=== PATIENT | female | born 1995 | race Caucasian/White ===

== ENCOUNTER 2019-09-08 09:33 | Emergency (ER) | payer OTHER ==
[2019-09-08 09:57] VITALS: BP 112/70; PULSE 75; TEMP 97.8; BMI 22.4
[2019-09-08] MEDS ORDERED: SODIUM CHLORIDE 1,000 ML IV STA (10:49)
[2019-09-08] MEDS ORDERED: ACETAMINOPHEN 1000 MG/100 ML VIAL (NON FORMULARY) IVPB ONE (10:49)
[2019-09-08] MEDS ORDERED: ONDANSETRON 4 MG/2 ML VIAL IVPUSH ONE (10:52)
[2019-09-08] MEDS ORDERED: ONDANSETRON 4 MG/2 ML VIAL ONE (10:56)
[2019-09-08] MEDS ORDERED: ACETAMINOPHEN INJECTION 100 ML IVPB ONE (10:56)
--- NOTE | 2019-09-08 11:27 | PDOC ---
History of Present Illness <Cely Kenny - Last Filed: 09/08/19 12:43> - General History Source: Patient Exam Limitations: No Limitations - History of Present Illness Travel History: No Timing/Duration: reports: constant Quality: reports: mild (headache) Pain Radiation: reports: no radiation Aggravating Factors: improves with: None Alleviating Factors: improves with: None <Sravani Coulter - Last Filed: 09/08/19 13:08> - General Chief Complaint: Nausea/Vomiting Stated Complaint: DIZZY/HEADACHE Time Seen by Provider: 09/08/19 10:26 Past History <Cely Kenny - Last Filed: 09/08/19 12:43> - Travel Traveled outside of the country in the last 30 days: No Close contact w/someone who was outside of country & ill: No - Psycho Social/Smoking Cessation Hx Smoking History: Never smoked Have you smoked in the past 12 months: No Hx Alcohol Use: No Drug/Substance Use Hx: No Patient Lives Alone: No Lives with/in: spouse/SO <YfnSravani - Last Filed: 09/08/19 13:08> - Past Medical History Allergies/Adverse Reactions: Allergies Allergy/AdvReac Type Severity Reaction Status Date / Time No Known Allergies Allergy Verified 09/08/19 09:52 Home Medications: Ambulatory Orders Ondansetron HCl [Zofran] 4 mg PO TID PRN #12 tablet 09/08/19 Review of Systems - Review of Systems Able to Perform ROS?: Yes Constitutional: No: Symptoms Reported HEENTM: No: Symptoms Reported Respiratory: No: Symptoms reported Cardiac (ROS): No: Symptoms Reported ABD/GI: Yes: Nausea. No: Vomiting : Yes: Dysuria. No: Discharge, Frequency, Flank Pain Musculoskeletal: No: Symptoms Reported Integumentary: No: Symptoms Reported Neurological: Yes: Headache Endocrine: No: Symptoms Reported Hematologic/Lymphatic: No: Symptoms Reported <Sravani Coulter - Last Filed: 09/08/19 13:08> *Physical Exam - Vital Signs Last Vital Signs Temp Pulse Resp BP Pulse Ox 97.8 F 75 15 112/70 98 09/08/19 09:52 09/08/19 09:52 09/08/19 09:52 09/08/19 09:52 09/08/19 09:52 <Cely Kenny - Last Filed: 09/08/19 12:43> - Vital Signs Last Vital Signs Temp Pulse Resp BP Pulse Ox 97.8 F 75 15 112/70 98 09/08/19 09:52 09/08/19 09:52 09/08/19 09:52 09/08/19 09:52 09/08/19 09:52 - Physical Exam General Appearance: Yes: Nourished, Appropriately Dressed. No: Apparent Distress HEENT: positive: Pharynx Normal. negative: Pale Conjunctivae Neck: positive: Normal Thyroid Respiratory/Chest: positive: Lungs Clear, Normal Breath Sounds. negative: Respiratory Distress, Accessory Muscle Use Cardiovascular: positive: Regular Rhythm, Regular Rate. negative: Murmur Female Pelvic Exam: positive: normal external exam. negative: discharge, vaginal bleeding Gastrointestinal/Abdominal: positive: Soft. negative: Tenderness Integumentary: positive: Normal Color, Warm, Moist Neurologic: positive: Motor Strength 5/5 (ambulatory) <Sravani Coulter - Last Filed: 09/08/19 13:08> ED Treatment Course - LABORATORY CBC & Chemistry Diagram: 09/08/19 11:11 09/08/19 11:11 - ADDITIONAL ORDERS Additional order review: Laboratory Results 09/08/19 09/08/19 11:11 11:11 Sodium 136 Potassium 3.9 Chloride 104 Carbon Dioxide 25 Anion Gap 7 L BUN 6.5 L Creatinine 0.6 Est GFR (CKD-EPI)AfAm 148.90 Est GFR (CKD-EPI)NonAf 128.48 Random Glucose 73 L Calcium 8.9 Total Bilirubin 0.2 AST 21 ALT 25 Alkaline Phosphatase 87 Total Protein 7.4 Albumin 3.6 Urine Color Yellow Urine Appearance Clear Urine pH 7.5 Ur Specific [place] 1.015 Urine Protein Negative Urine Glucose (UA) Negative Urine Ketones Negative Urine Blood Negative Urine Nitrite Negative Urine Bilirubin Negative Urine Urobilinogen 1.0 Ur Leukocyte Esterase Negative 09/08/19 11:11 RBC 5.92 H MCV 66.7 L MCHC 31.3 L RDW 14.8 MPV 13.5 H Neutrophils % 75.1 Lymphocytes % 20.5 Monocytes % 3.3 L Eosinophils % 0.3 Basophils % 0.8 - Medications Given in the ED: ED Medications Discontinued Medications Generic Name Dose Route Start Last Admin Trade Name Freq PRN Reason Stop Dose Admin Acetaminophen 1,000 mg 09/08/19 10:49 09/08/19 10:55 Ofirmev Injection - IVPB 09/08/19 10:50 1,000 mg ONCE ONE Administration Sodium Chloride 1,000 mls @ 1,000 mls/hr 09/08/19 10:49 09/08/19 10:55 Normal Saline - IV 09/08/19 11:48 1,000 mls/hr ASDIR STA Administration Ondansetron HCl 4 mg 09/08/19 10:52 09/08/19 10:55 Zofran Injection IVPUSH 09/08/19 10:53 4 mg ONCE ONE Administration <Cely Kenny - Last Filed: 09/08/19 12:43> - LABORATORY CBC & Chemistry Diagram: 09/08/19 11:11 09/08/19 11:11 <Sravani Coulter - Last Filed: 09/08/19 13:08> Medical Decision Making - Medical Decision Making The patient was seen and evaluated in conjunction with midlevel provider under my direct supervision, ancillary studies were reviewed. I agree with the plan as outlined with ELAINE Coulter. HPI, workup/dispo as outlined. VS reviewed, wnl. currently ~2 months. no VB. indu PO intake. 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 patient currently 8 weeks no other complaints Exam: Patient with no abnormal findings on exam vital signs stable. Plan: Labs, urine, IV fluids, Zofran IV Tylenol 09/08/19 12:04 Laboratory Tests 09/08/19 09/08/19 09/08/19 11:11 11:11 11:11 WBC 9.1 Hgb 12.4 Hct 39.5 Plt Count 123 L MPV 13.5 H Monocytes % 3.3 L Sodium 136 Potassium 3.9 Chloride 104 Carbon Dioxide 25 Anion Gap 7 L BUN 6.5 L Creatinine 0.6 Est GFR (CKD-EPI)AfAm 148.90 Est GFR (CKD-EPI)NonAf 128.48 Random Glucose 73 L Calcium 8.9 Total Bilirubin 0.2 AST 21 ALT 25 Urine pH 7.5 Ur Specific [place] 1.015 Urine Protein Negative Urine Glucose (UA) Negative Urine Ketones Negative Urine Nitrite Negative Urine Bilirubin Negative Ur Leukocyte Esterase Negative C. trachomatis (LISA) N. gonorrhoeae (LISA) 09/08/19 11:11 WBC Hgb Hct Plt Count MPV Monocytes % Sodium Potassium Chloride Carbon Dioxide Anion Gap BUN Creatinine Est GFR (CKD-EPI)AfAm Est GFR (CKD-EPI)NonAf Random Glucose Calcium Total Bilirubin AST ALT Urine pH Ur Specific [place] Urine Protein Urine Glucose (UA) Urine Ketones Urine Nitrite Urine Bilirubin Ur Leukocyte Esterase C. trachomatis (LISA) Pending N. gonorrhoeae (LISA) Pending patient states feeling better. Patient given crackers and apple juice 09/08/19 13:06 Patient states feeling much better. Patient tolerated crackers apple juice and turkey sandwich. Will discharge home with Zofran. Patient is aware urine culture was sent and to start her vitamins. 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 examiner and adjuster <Sravani Coulter - Last Filed: 09/08/19 13:08> Discharge - Discharge Information Problems reviewed: Yes <Cely Kenny - Last Filed: 09/08/19 12:43> - Discharge Information Problems reviewed: Yes <Sravani Coulter - Last Filed: 09/08/19 13:08> - Discharge Information Clinical Impression/Diagnosis: Vomiting or nausea of Condition: Improved Disposition: HOME - Additional Discharge Information Prescriptions: Ondansetron HCl [Zofran] 4 mg PO TID PRN #12 tablet PRN Reason: Nausea And/Or Vomiting - Follow up/Referral Referrals: Kush Sanders MD [Staff Physician] - - Patient Discharge Instructions Patient Printed Discharge Instructions: Managing Symptoms of Additional Instructions: As far as the headache is concerned you may take Tylenol for headache. As far as the nausea you may take Zofran for nausea. Eat small frequent meals and please start your prenatals. Print Language: SAMI
[2019-09-08 11:38] LABS: BASO % 0.8 % (0-2.0); EOS % 0.3 % (0-4.5); HEMATOCRIT 39.5 % (32.4-45.2); HEMOGLOBIN 12.4 GM/dL (10.7-15.3); LYMPH % 20.5 % (8-40); MCH 20.9 pg (25.7-33.7); MCHC 31.3 g/dl (32.0-36.0); MEAN CELL VOLUME 66.7 fl (80-96); MEAN PLT VOLUME 13.5 fl (7.5-11.1); MONO % 3.3 % (3.8-10.2); NEUT % 75.1 % (42.8-82.8); PLATELET COUNT 123 K/MM3 (134-434); RBC 5.92 M/mm3 (3.60-5.2); RDW 14.8 % (11.6-15.6); WHITE BLOOD COUNT 9.1 K/mm3 (4.0-10.0)
[2019-09-08 11:46] LABS: PH,URINE 7.5 (5.0-8.0); URINE APPEARANCE CLEAR; URINE BILIRUBIN NEGATIVE (NEGATIVE); URINE COLOR YELLOW; URINE GLUCOSE (UA) NEGATIVE (NEGATIVE); URINE KETONE NEGATIVE (NEGATIVE); URINE LEUK ESTERASE NEGATIVE (NEGATIVE); URINE NITRITE NEGATIVE (NEGATIVE); URINE PROTEIN NEGATIVE (NEGATIVE)
[2019-09-08 12:01] LABS: ALBUMIN 3.6 g/dl (3.4-5.0); BILIRUBIN,TOTAL 0.2 mg/dL (0.2-1); BLOOD UREA NITROGEN 6.5 mg/dL (7-18); CALCIUM 8.9 mg/dL (8.5-10.1); CREATININE 0.6 mg/dL (0.55-1.3); POTASSIUM 3.9 mmol/L (3.5-5.1); TOT PROT 7.4 g/dl (6.4-8.2)
[2019-09-08 13:05] LABS: ANISOCYTOSIS 2+; MACROCYTOSIS 0; PLATELET ESTIMATE DECREASED
== END 2019-09-08 13:18 | disposition home or self-care (01) ==
LOC: JER 09:33
PROC: 3E033GC Introduction of Other Therapeutic Substance into Peripheral Vein, Percutaneous Approach (ICD-10-PCS; principal; 2019-09-08)
PROC: 3E033NZ Introduction of Analgesics, Hypnotics, Sedatives into Peripheral Vein, Percutaneous Approach (ICD-10-PCS; 2019-09-08)
DX: O26.891 Other specified pregnancy related conditions, first trimester (principal); O21.0 Mild hyperemesis gravidarum; Z3A.08 8 weeks gestation of pregnancy
CPT/HCPCS: 36415; 80053; 81003; 85025; 87086; 87491; 87591; 99282-25; J0131; J7030

== ENCOUNTER 2020-04-04 07:10 | Inpatient (IN) | payer OTHER ==
[2020-04-04] MEDS ORDERED: AMPICILLIN SODIUM 2 GM VIAL ONE (07:56)
--- NOTE | 2020-04-04 08:03 | PD.OB.PROG ---
Past Medical History - Primary Care Physician PCP:: Austin Conner Documenting Provider Type: Laborist - Admission Chief Complaint: in labor History of Present Illness: second baby. Uneventful gestation. GBS pos. 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 Cardio/Vascular: Denies/None Pulmonary: Denies/None Gastrointestinal: Denies/None Hepatobiliary: Denies/None Renal/: Denies/None Heme/Onc: Denies/None Infectious Disease: Denies/None Psych: Denies/None Musculoskeletal: Denies/None Rheumatology: Denies/None ENT: Denies/None Endocrine: Denies/None Dermatology: Denies/None - Smoking History Smoking history: Never smoked Have you smoked in the past 12 months: No - Alcohol/Substance Use Hx Alcohol Use: No Review of Systems - Review of Systems Constitutional: reports: No Symptoms Eyes: reports: No Symptoms HENT: reports: No Symptoms Neck: reports: No Symptoms Cardiovascular: reports: No Symptoms Respiratory: reports: No Symptoms Gastrointestinal: reports: No Symptoms Genitourinary: reports: No Symptoms Breasts: reports: No Symptoms Reported Musculoskeletal: reports: No Symptoms Integumentary: reports: No Symptoms Neurological: reports: No Symptoms Endocrine: reports: No Symptoms Hematology/Lymphatic: reports: No Symptoms Psychiatric: reports: No Symptoms Physical Exam - Obstetrical Constitutional: Yes: Well Nourished, No Distress, Calm Eyes: Yes: WNL, Conjunctiva Clear, EOM Intact HENT: Yes: WNL, Atraumatic, Normocephalic Neck: Yes: WNL, Supple, Trachea Midline Cardiovascular: Yes: WNL, Regular Rate and Rhythm Lungs: Clear to auscultation Breast(s): Yes: WNL - Abdominal Exam/OB Fundal Height: 38 Number of Fetuses: Single Presentation: Vertex Contractions: Yes Regularity: Regular Intensity: Moderate Monitor Mode: External Heart Rate (range): 140 Heart Rate Location: [facility] Category: I Accelerations: Uniform Decelerations: None - Vaginal Exam/OB Vaginal Exam Deferred: No Vaginal Bleeding: No Dilatation (cm): 9 Effacement (%): 100 Amniotic Membrane Status: Intact Presentation: Vertex/Position Station: 0 - Physical Exam Musculoskeletal: Yes: WNL Extremities: Yes: WNL Integumentary: Yes: WNL ...Motor Strength: WNL Psychiatric: Yes: WNL Problem List - Problems (1) Active labor at term Code(s): [id number] - Assessment/Plan Active, ready to deliver. Ampicillin for GBS prophylaxis. Expecting vaginal delivery soon.
[2020-04-04 08:28] VITALS: BMI 25.4
[2020-04-04] MEDS ORDERED: OXYTOCIN 20 UNITS in 0.9% NS 20 UNIT/1,000 ML INFUS.BAG IV ONE (08:48)
[2020-04-04] MEDS ORDERED: LIDOCAINE HCL 1% PRESERVATIVE FREE - 30ML VIAL ONE (08:49)
--- NOTE | 2020-04-04 09:21 | HP ---
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: No: Alzheimer's, CVA, Dementia, Migraine, Multiple Sclerosis, Peripheral Neuropathy, Parkinson's, Seizure, Syncope, TIA, Vertigo, Other Cardiovascular: No: AFIB, Aneurysm, Aortic Insufficiency, Aortic Stenosis, CAD, CHF, Deep Vein Thrombosis, HTN, Hyperlipdemia, [place], Mitral Insufficiency, Mitral Stenosis, Murmur, Pulmonary Hypertension, Other Pulmonary: No: Asthma, Bronchitis, Cancer, COPD, O2 Dependent, Pneumonia, Previously Intubated, Pulmonary Embolus, Pulmonary Fibrosis, Sleep Apnea, Other Gastrointestinal: No: Ascites, Cancer, Constipation, Crohn's Disease, Diverticulitis, Diverticulosis, Esophageal Varices, Gastritis, GERD, GI Bleed, Hemorrhoids, Hiatal Hernia, Inflamatory Bowel Disease, Irritable Bowel Disease, Pancreatitis, Peptic Ulcer Disease, Ulcerative Colitis, Other Hepatobiliary: No: Cirrhosis, Cholelithiasis, Cholecystitis, Choledocholithiasis, Hepatitis A, Hepatitis B, Hepatitis C, Other Renal/: No: Renal Failure, Renal Inusuff, BPH, Cancer, Hematuria, Hemodialysis, Neurogenic Bladder, Renal Calculi, UTI, Other Reproductive: No: Ectopic , Endometriosis, Fibroids, PID, Polycystic Ovary Syndrome, Postmenopausal, Other ...: 2 ...Para: 1 ...Term: 1 ...: 0 ...Spon : 0 ...Induced : 0 ...Living Children: 1 ...Multiple Gestation: 0 ...LMP: 07/10/19 ... Weeks Gestation by Dates: 38.4 ...EDC by Dates: 04/15/20 ...EDC by Sono: 04/09/20 Heme/Onc: No: Anemia, B12 Deficiency, Bleeding Disorder, Cancer, Current Chemotherapy, Current Radiation Therapy, Hemochromatosis, Hypercoaguable State, Myeloproliferative Synd, Sickle Cell Disease, Sickle Cell Trait, Thrombocytopenia, Other Infectious Disease: No: AIDS, C-Diff, Herpes Zoster, HIV, MRSA, STD's, Tuberculosis, VREF, Other Psych: No: Addictions, Anxiety, Bipolar, Depression, Panic, Psychosis, Schizophrenia, Other Musculoskeletal: No: Bursitis, Chronic low back pain, Hemiparesis, Hemiplegia, Osteoarthritis, Paraplegia, Other Rheumatology: No: Fibromyalgia, Gout, Lupus, Rheumatoid Arthritis, Sarcoidosis, Vasculitis, Other ENT: No: Allergic Rhinitis, Sinusitis, Other Endocrine: No: Jerauld's Disease, Oxford's Disease, Diabetes Insipidus, D iabetes Mellitus, Hyperparathyroidism, Hyperthyroidism, Hypothyroidism, Osteopenia, SIADH, Other - Past Surgical History Past Surgical History: No: None, AAA Repair, AICD, Amputation, Appendectomy, Arthrosocopy, AV Fistula/Graft, Bariatric Surgery, Breast Biopsy, Bypass, CABG, Carotid Endarterectomy, Cataract Removal, Cholecystectomy, Colectomy, Colonoscopy, Colostomy, Craniotomy, , Cystectomy, Hernia Repair, Hysterectomy, Ileal Conduit, Ileosotomy, Joint Replacement, Kidney Transplant, Laminectomy, Liver Transplant, Mastectomy, Nephrectomy, Oopherectomy, Orchiectomy, Permanent Pacemaker, Prostatectomy, Splenectomy, Stent, Thoracotomy, TURP, Tonsillectomy, Tubal Ligation, Upper Endoscopy, Valve Replacement, Vasectomy, Vein Stripping/Ligation Hx Myomectomy: No Hx Transabdominal Cerclage: No - Advance Directives Advance Directives: No: Living Will, Health Care Proxy, DNR, Organ Donor, Tissue Donor, MOLST - Smoking History Smoking history: Never smoked Have you smoked in the past 12 months: No - Alcohol/Substance Use Hx Alcohol Use: No Home Medications - Allergies Allergies/Adverse Reactions: Allergies Allergy/AdvReac Type Severity Reaction Status Date / Time No Known Allergies Allergy Verified 09/08/19 09:52 - Home Medications Home Medications: Ambulatory Orders Ondansetron HCl [Zofran] 4 mg PO TID PRN #12 tablet 09/08/19 Nitrofurantoin Monohyd/M-Cryst [Macrobid -] 100 mg PO BID #14 capsule 02/20/20 Review of Systems - Review of Systems Constitutional: reports: No Symptoms Eyes: reports: No Symptoms HENT: reports: No Symptoms Neck: reports: No Symptoms Cardiovascular: reports: No Symptoms Respiratory: reports: No Symptoms Gastrointestinal: reports: No Symptoms Genitourinary: reports: No Symptoms Breasts: reports: No Symptoms Reported Musculoskeletal: reports: No Symptoms Integumentary: reports: No Symptoms Neurological: reports: No Symptoms Endocrine: reports: No Symptoms Hematology/Lymphatic: reports: No Symptoms Psychiatric: reports: No Symptoms Physical Exam - Maternity Vital Signs: Vital Signs Temperature 98.9 F 04/04/20 08:17 Pulse Rate 78 04/04/20 08:17 Respiratory Rate 18 04/04/20 08:17 Blood Pressure 111/66 04/04/20 08:17 O2 Sat by Pulse Oximetry (%) Constitutional: Yes: Well Nourished, No Distress, Calm Eyes: Yes: WNL, Conjunctiva Clear, EOM Intact HENT: Yes: WNL, Atraumatic, Normocephalic Neck: Yes: WNL, Supple, Trachea Midline Cardiovascular: Yes: WNL, Regular Rate and Rhythm Breast(s): Yes: WNL - Abdominal Exam/OB Fundal Height: 38 Number of Fetuses: Single Presentation: Vertex Regularity: Regular Intensity: Mild/Mod Heart Rate (range): 135 Heart Rate Location: [facility] Category: I Accelerations: Uniform Decelerations: None - Vaginal Exam/OB Vaginal Bleeding: No Dilatation (cm): 9 Effacement (%): 100 Amniotic Membrane Status: Intact Presentation: Vertex/Position Station: 0 - Physical Exam Musculoskeletal: Yes: WNL Problem List - Problems (1) Active labor at term Code(s): [id number] - Assessment/Plan expecting vaginal delivery.
--- NOTE | 2020-04-04 09:22 | PN ---
Progress Note, Labor Vaginal Exam #2 Labor Exam Date: 04/04/20 Labor Exam Time: 08:45 Heart Rate (range): 140 Dilatation: 10 Presentation: Vertex/Position Station: +2 (AROM, clear. Pushing.)
--- NOTE | 2020-04-04 09:25 | PN ---
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 Boy, Apg. 9 and 9. Delayed cord clamping. 1 degree lacer.; local, repaired w Chromic suture.
[2020-04-04] MEDS ORDERED: LACTATED RINGERS SOLUTION 1,000 ML IV SCH (10:00)
[2020-04-04] MEDS ORDERED: AMPICILLIN - 2 GM in DEXTROSE 5%-WATER 100 ML IVPB ONE (10:00)
[2020-04-04 10:35] LABS: BASO % 0.7 % (0-2.0); EOS % 0.2 % (0-4.5); HEMATOCRIT 33.9 % (32.4-45.2); HEMOGLOBIN 10.4 GM/dL (10.7-15.3); LYMPH % 12.3 % (8-40); MCHC 30.8 g/dl (32.0-36.0); MEAN CELL VOLUME 68.2 fl (80-96); MEAN PLT VOLUME 12.1 fl (7.5-11.1); MONO % 4.7 % (3.8-10.2); NEUT % 82.1 % (42.8-82.8); PLATELET COUNT 133 K/MM3 (134-434); RBC 4.97 M/mm3 (3.60-5.2); RDW 15.3 % (11.6-15.6); WHITE BLOOD COUNT 13.2 K/mm3 (4.0-10.0)
[2020-04-04 10:41] LABS: INR 0.9 (0.83-1.09); PROTHROMBIN TIME (PATIENT) 10.6 SEC (9.7-13.0)
[2020-04-04 10:44] LABS: ACTIVATED PTT 25.1 SECONDS (25.2-36.5)
[2020-04-04] MEDS ORDERED: OXYTOCIN 20 UNITS in 0.9% NS 1000 ML INFUS.BAG IV ONE (10:45)
[2020-04-04] MEDS ORDERED: ACETAMINOPHEN 325 MG TABLET (FP) PO PRN (10:45)
[2020-04-04] MEDS ORDERED: BISACODYL 10 MG SUPP.RECT RC PRN (10:45)
[2020-04-04] MEDS ORDERED: WITCH HAZEL 50% (TUCKS) 40 PAD/JAR PAD TP PRN (10:45)
[2020-04-04] MEDS ORDERED: IBUPROFEN 600 MG TABLET (FP) PO PRN (10:45)
[2020-04-04] MEDS ORDERED: METHYLERGONOVINE MALEATE 0.2 MG/1 ML AMP IM PRN (10:45)
[2020-04-04] MEDS ORDERED: BENZOCAINE 20% 57 GM BOTTLE TP PRN (10:45)
[2020-04-04] MEDS ORDERED: BENZOCAINE 28 GM HEMORRHOIDAL OINTMENT TP PRN (10:45)
[2020-04-04 10:58] LABS: BLOOD UREA NITROGEN 6.9 mg/dL (7-18); CALCIUM 8.6 mg/dL (8.5-10.1); CREATININE 0.8 mg/dL (0.55-1.3); POTASSIUM 3.5 mmol/L (3.5-5.1)
[2020-04-04] MEDS ORDERED: AMPICILLIN - 1 GM in DEXTROSE 5%-WATER 100 ML IVPB SCH (14:00)
--- NOTE | 2020-04-05 07:55 | DS ---
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 Signs: Vital Signs Temperature 98.5 F 04/05/20 06:00 Pulse Rate 60 04/05/20 06:00 Respiratory Rate 18 04/05/20 06:00 Blood Pressure 100/55 L 04/05/20 06:00 O2 Sat by Pulse Oximetry (%) Constitutional: Yes: Well Nourished, No Distress, Calm Eyes: Yes: WNL, Conjunctiva Clear, EOM Intact HENT: Yes: WNL, Atraumatic, Normocephalic Neck: Yes: WNL, Supple, Trachea Midline Cardiovascular: Yes: WNL, Regular Rate and Rhythm Respiratory: Yes: WNL, Regular, CTA Bilaterally Gastrointestinal: Yes: WNL ...Rectal Exam: Yes: WNL Renal/: Yes: WNL ....Post : Yes: Uterus firm, Uterus non-tender, Slight lochia rubra Breast(s): Yes: WNL Musculoskeletal: Yes: WNL Extremities: Yes: WNL Integumentary: Yes: WNL Neurological: Yes: WNL, Alert, Oriented ...Motor Strength: WNL Psychiatric: Yes: WNL, Alert, Oriented Labs: CBC, BMP 04/04/20 10:22 04/04/20 10:22 Delivery - Delivery Vaginal Delivery: No Problems, Spontaneous Type of Anesthesia: Local Episiotomy/Laceration: 1st degree EBL (cc): 150 Delivery, Single - Stages of Labor Date 1st Stage Initiatied: 04/04/20 Time 1st Stage Initiated: 03:00 Date 2nd Stage Initiated: 04/04/20 Time 2nd Stage Initiated: 07:45 Date of Delivery: 04/04/20 Time of Delivery: 09:02 Time Placenta Delivered: 09:07 Placenta: Yes: Spontaneous, Normal Configuration - 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 Present: No Gender: Male Weight: 6 lb 4 oz Position: OA Total Hours ROM (Hrs/Mins): 17m - 1 Minute Total Score: 9 5 Minutes Total Score: 9 - Feeding Plan Initial Plan: Elected not to breastfeed exclusively throughout hospitalization Discharge Summary Reason For Visit: LABOR ADMIT Current Active Problems Active labor at term (Acute) Procedures: Principal: Hospital Course: no complication Plan of Treatment: follow up [facility] care 4 weeks Condition: Good - Instructions Diet, Activity, Other Instructions: regular diet, no intercourse, if fever, heavy vahinal; bleeding pain call md, follow up office 4 weeks Referrals: Austni Conner MD [Staff Physician] - Disposition: HOME - Home Medications Comprehensive Discharge Medication List: Ambulatory Orders Ondansetron HCl [Zofran] 4 mg PO TID PRN #12 tablet 09/08/19 Nitrofurantoin Monohyd/M-Cryst [Macrobid -] 100 mg PO BID #14 capsule 02/20/20 Ibuprofen [Motrin -] 600 mg PO QID #28 tablet 04/04/20
[2020-04-05 08:23] LABS: BASO % 0.5 % (0-2.0); EOS % 0.6 % (0-4.5); HEMATOCRIT 34.5 % (32.4-45.2); HEMOGLOBIN 10.6 GM/dL (10.7-15.3); LYMPH % 19.9 % (8-40); MCH 21.1 pg (25.7-33.7); MCHC 30.8 g/dl (32.0-36.0); MEAN CELL VOLUME 68.6 fl (80-96); MEAN PLT VOLUME 11.9 fl (7.5-11.1); PLATELET COUNT 133 K/MM3 (134-434); RBC 5.03 M/mm3 (3.60-5.2); RDW 15.6 % (11.6-15.6); WHITE BLOOD COUNT 17.2 K/mm3 (4.0-10.0)
[2020-04-05 11:43] VITALS: BP 105/73; PULSE 91; TEMP 97.9
[2020-04-05] MEDS ORDERED: SENNOSIDES/DOCUSATE COMBO (SENNA PLUS) TABLET (UD) PO PRN (22:00)
== END 2020-04-05 15:00 | disposition home or self-care (01) | DRG 560 ==
LOC: JDEL 07:10 → JLDR 07:47 → J3W 11:15
PROVIDERS: ADMIT Obstetrics & Gynecology; ATTEND Obstetrics & Gynecology
PROC: 10E0XZZ Delivery of Products of Conception, External Approach (ICD-10-PCS; principal; 2020-04-04)
PROC: 10907ZC Drainage of Amniotic Fluid, Therapeutic from Products of Conception, Via Natural or Artificial Opening (ICD-10-PCS; 2020-04-04)
PROC: 0HQ9XZZ Repair Perineum Skin, External Approach (ICD-10-PCS; 2020-04-04)
DX: O70.0 First degree perineal laceration during delivery (principal); O99.834 Other infection carrier state complicating childbirth; B95.1 Streptococcus, group B, as the cause of diseases classified elsewhere; Z3A.39 39 weeks gestation of pregnancy; Z37.0 Single live birth; Z22.330 Carrier of Group B streptococcus
CPT/HCPCS: 36415; 59409; 80048; 85025; 85610; 85730; 86780; 86850; 86900; 86901; U0003

== ENCOUNTER 2023-11-15 09:51 | Emergency (ER) | payer OTHER ==
[2023-11-15 10:03] VITALS: BP 138/77; PULSE 69; RESP 18; TEMP 98.6; BMI 29.2
[2023-11-15] MEDS ORDERED: ONDANSETRON 4 MG/2 ML VIAL ONE (10:42)
[2023-11-15] MEDS ORDERED: ACETAMINOPHEN INJECTION 100 ML IVPB ONE (10:42)
[2023-11-15 10:43] LABS: BASO % 0.9 % (0-2.0); EOS % 1.1 % (0-4.5); HEMATOCRIT 45.7 % (32.4-45.2); HEMOGLOBIN 14.2 GM/dL (10.7-15.3); LYMPH % 26.9 % (8-40); MEAN CELL VOLUME 67.6 fl (80-96); MEAN PLT VOLUME 10.3 fl (7.5-11.1); MONO % 3.7 % (3.8-10.2); NEUT % 67.4 % (42.8-82.8); PLATELET COUNT 151 10^3/uL (134-434); RBC 6.76 M/mm3 (3.60-5.2); RDW 15.9 % (11.6-15.6); WHITE BLOOD COUNT 9.8 K/mm3 (4.0-10.0)
[2023-11-15] MEDS: ACETAMINOPHEN 1000 MG/100 ML BAG IVPB ONE (10:53)
[2023-11-15] MEDS: SODIUM CHLORIDE 0.9% 500 ML INFUS.BAG IV ONE (10:53)
[2023-11-15] MEDS: ONDANSETRON 4 MG/2 ML VIAL IVPUSH ONE (10:54)
[2023-11-15 11:02] LABS: CALCIUM 8.8 mg/dL (8.5-10.1)
[2023-11-15 11:03] LABS: ALBUMIN 4.1 g/dl (3.4-5.0); BLOOD UREA NITROGEN 9.4 mg/dL (7-18)
[2023-11-15 11:06] LABS: CREATININE 0.9 mg/dL (0.55-1.3)
[2023-11-15 11:08] LABS: BILIRUBIN,TOTAL 0.4 mg/dL (0.2-1); TOT PROT 8.3 g/dl (6.4-8.2)
[2023-11-15 11:09] LABS: EPI CELLS 12 /uL (0-25.1); HYALINE CASTS 1 /uL (0-3.1); PH,URINE 5.5 (5.0-8.0); URINE APPEARANCE CLEAR; URINE BACTERIA 29 /uL (0-1359); URINE BILIRUBIN NEGATIVE (NEGATIVE); URINE COLOR YELLOW; URINE GLUCOSE (UA) NEGATIVE (NEGATIVE); URINE KETONE NEGATIVE (NEGATIVE); URINE LEUK ESTERASE 2+ (NEGATIVE); URINE NITRITE NEGATIVE (NEGATIVE); URINE PROTEIN 1+ (NEGATIVE); URINE RBC 34 /uL (0-23.9); URINE WBC 137 /uL (0-25.8)
[2023-11-15 11:26] LABS: ANISOCYTOSIS 3+; MACROCYTOSIS 0
[2023-11-15] MEDS ORDERED: IBUPROFEN 600 MG TABLET (FP) PO ONE (14:08)
[2023-11-15] MEDS: levoFLOXacin 750 MG TABLET PO ONE (14:41)
== END 2023-11-15 15:07 | disposition home or self-care (01) ==
LOC: JER 09:51
PROC: 3E033NZ Introduction of Analgesics, Hypnotics, Sedatives into Peripheral Vein, Percutaneous Approach (ICD-10-PCS; principal; 2023-11-15)
PROC: 3E033GC Introduction of Other Therapeutic Substance into Peripheral Vein, Percutaneous Approach (ICD-10-PCS; 2023-11-15)
DX: R10.9 Unspecified abdominal pain (principal); M54.9 Dorsalgia, unspecified; R11.2 Nausea with vomiting, unspecified; N12 Tubulo-interstitial nephritis, not specified as acute or chronic
CPT/HCPCS: 36415; 74176-TC; 80053; 81003; 83690; 84703; 85025; 87086; 99284-25; J0131

== ENCOUNTER 2024-06-03 09:36 | Emergency (ER) | payer OTHER ==
[2024-06-03 09:43] VITALS: BP 130/78; PULSE 69; RESP 20; TEMP 98.8; BMI 27.6
[2024-06-03] MEDS ORDERED: ACETAMINOPHEN INJECTION 100 ML ONE (10:55)
[2024-06-03 11:04] LABS: EPI CELLS 7 /uL (0-25.1); HYALINE CASTS 0 /uL (0-3.1); PH,URINE 7.5 (5.0-8.0); URINE APPEARANCE CLEAR; URINE BACTERIA 25 /uL (0-1359); URINE BILIRUBIN NEGATIVE (NEGATIVE); URINE COLOR YELLOW; URINE GLUCOSE (UA) NEGATIVE (NEGATIVE); URINE KETONE NEGATIVE (NEGATIVE); URINE LEUK ESTERASE TRACE (NEGATIVE); URINE NITRITE NEGATIVE (NEGATIVE); URINE PROTEIN TRACE (NEGATIVE); URINE RBC 33 /uL (0-23.9); URINE WBC 12 /uL (0-25.8)
[2024-06-03] MEDS: SODIUM CHLORIDE 0.9% 500 ML INFUS.BAG IV ONE (11:28)
[2024-06-03] MEDS: ACETAMINOPHEN 1000 MG/100 ML BAG IVPB ONE (11:29)
[2024-06-03 11:52] LABS: BASO % 0.7 % (0-2.0); EOS % 0.5 % (0-4.5); HEMATOCRIT 46.2 % (32.4-45.2); HEMOGLOBIN 14.2 GM/dL (10.7-15.3); LYMPH % 30.6 % (8-40); MCH 20.9 pg (25.7-33.7); MCHC 30.8 g/dl (32.0-36.0); MONO % 4.9 % (3.8-10.2); NEUT % 63.3 % (42.8-82.8); PLATELET COUNT 170 10^3/uL (134-434); RDW 14.9 % (11.6-15.6); WHITE BLOOD COUNT 7.6 K/mm3 (4.0-10.0)
[2024-06-03 12:00] LABS: INR 1.1 (0.83-1.09); PROTHROMBIN TIME (PATIENT) 12.4 SEC (9.7-13.0)
[2024-06-03 12:03] LABS: ACTIVATED PTT 32.5 SECONDS (25.2-36.5)
[2024-06-03 12:09] LABS: POTASSIUM 4.1 mmol/L (3.5-5.1)
[2024-06-03 12:12] LABS: CALCIUM 9.9 mg/dL (8.5-10.1)
[2024-06-03 12:13] LABS: ALBUMIN 4.5 g/dl (3.4-5.0); BLOOD UREA NITROGEN 8.8 mg/dL (7-18)
[2024-06-03 12:16] LABS: CREATININE 0.8 mg/dL (0.55-1.3)
[2024-06-03 12:17] LABS: BILIRUBIN,TOTAL 0.6 mg/dL (0.2-1); TOT PROT 8.8 g/dl (6.4-8.2)
[2024-06-03 12:40] LABS: HIV INTERPRETATION NEGATIVE (NEGATIVE)
[2024-06-03 13:23] LABS: ANISOCYTOSIS 1+; MACROCYTOSIS 0
== END 2024-06-03 14:11 | disposition home or self-care (01) ==
LOC: JER 09:36
PROC: 3E033NZ Introduction of Analgesics, Hypnotics, Sedatives into Peripheral Vein, Percutaneous Approach (ICD-10-PCS; principal; 2024-06-03)
DX: R53.81 Other malaise (principal); R53.83 Other fatigue; R51.9 Headache, unspecified; R11.0 Nausea; R30.0 Dysuria; R10.9 Unspecified abdominal pain; R42 Dizziness and giddiness; Z20.822 Contact with and (suspected) exposure to COVID-19
CPT/HCPCS: 0241U-QW; 36415; 80053; 81003; 82962; 84703; 85025; 85610; 85730; 86803; 86850; 86900; 86901; 87086; 87389; 93005; 93010; 96374; 99284-25; J0131